=== PATIENT | female | born 1950 | race African-American/Black ===

== ENCOUNTER 2017-02-02 08:33 | Emergency (ER) | payer MEDICARE, BC ==
[2017-02-02] MEDS ORDERED: Gabapentin CAP(*) 300 MG PO ONE (09:27)
[2017-02-02] MEDS ORDERED: Ibuprofen TAB* 800 MG PO ONE (09:27)
[2017-02-02] MEDS ORDERED: ValACYclovir (*) 1 GM TAB PO ONE (09:27)
--- NOTE | 2017-02-03 23:56 | ED ---
Skin Complaint - HPI Summary HPI Summary: Pt here w/ painful rash on Lt cheek this morning. Started as pain and swelling last night - couldn't sleep d/t pain. H/o chix pox. No other areas of pain or rash to report. Eye is moving well and painfree - vision intact. Ear is also pain free and hearing well. - History of Current Complaint Chief Complaint: EDRashSkinAbscess Time Seen by Provider: 02/02/17 09:01 Stated Complaint: RASH Pain Intensity: 0 Pain Scale Used: 0-10 Numeric - Allergy/Home Medications Allergies/Adverse Reactions: Allergies Allergy/AdvReac Type Severity Reaction Status Date / Time Sulfa Antibiotics Allergy Severe Rash And Verified 02/02/17 08:44 Itching PMH/Surg Hx/FS Hx/Imm Hx Infectious Disease History: No Infectious Disease History: Denies: Traveled Outside the [place] in Last 30 Days - Social History Alcohol Use: Occasionally Substance Use Type: Reports: None Smoking Status (MU): Never Smoked Tobacco Physical Exam Vital Signs On Initial Exam: Initial Vitals Temp Pulse Resp BP Pulse Ox 97.0 F 64 16 190/86 98 02/02/17 08:34 02/02/17 08:34 02/02/17 08:34 02/02/17 08:34 02/02/17 08:34 - [place] Coma Scale Coma Scale Total: 15 Diagnostics - Vital Signs Vital Signs Temp Pulse Resp BP Pulse Ox 02/02/17 08:34 97.0 F 64 16 190/86 98 - Laboratory Lab Statement: Any lab studies that have been ordered have been reviewed, and results considered in the medical decision making process. Course/Dx - Diagnoses Provider Diagnoses: Shingles Discharge - Discharge Plan Condition: Stable Disposition: HOME Prescriptions: Gabapentin CAP(*) [Neurontin 300 CAP(*)] 300 mg PO TID #42 cap Ibuprofen TAB* [Motrin TAB* 800 MG] 800 mg PO Q8HR PRN #20 tab PRN Reason: Pain ValACYclovir (*) [Valtrex 1 GM(*)] 1 gm PO TID #21 tab Patient Education Materials: Shingles (ED) Referrals: Non Staff,Doctor [Primary Care Provider] - Additional Instructions: Take medications as directed Follow-up with PCP/[facility] in 1 week: [address], [place] [address] *If worse or if you develop any eye pain/irritation/change in vision in Left eye , return to ED
[2017-02-04 19:11] LABS: HS/VZ Source LEFT CHEEK; Varicella Zoster Result Negative (Negative); Varicella Zoster Source LEFT CHEEK
== END 2017-02-02 10:14 | disposition home or self-care (01) ==
LOC: ED 08:33
DX: B02.9 Zoster without complications (principal); R21 Rash and other nonspecific skin eruption
CPT/HCPCS: 87529; 87798; 99281; A9270-GY

== ENCOUNTER 2017-02-08 15:00 | Emergency (ER) | payer MEDICARE, BC ==
[2017-02-08] MEDS ORDERED: Cephalexin CAP* 500 MG PO ONE (16:20)
[2017-02-08 17:03] VITALS: BP 147/72
--- NOTE | 2017-02-09 07:34 | ED ---
Praveen Crowder Gabriel, scribed for Juanpablo Sigala MD on 02/08/17 at 1606 . Skin Complaint - HPI Summary HPI Summary: This patient is a 66 year old F presenting to [facility] accompanied by family with a chief complaint of pain and redness on arm since a few days prior. Patient was diagnosed with shingles a week ago and believes it is due to her shingles. - History of Current Complaint Chief Complaint: EDGeneral Time Seen by Provider: 02/08/17 16:02 Stated Complaint: SHINGLES FLOW UP Hx Obtained From: Patient Onset/Duration: Still Present Timing: Constant Pain Intensity: 0 Pain Scale Used: 0-10 Numeric Skin Location: Arm Character: Redness Associated Signs & Symptoms: Tenderness - Allergy/Home Medications Allergies/Adverse Reactions: Allergies Allergy/AdvReac Type Severity Reaction Status Date / Time Sulfa Antibiotics Allergy Severe Rash And Verified 02/02/17 08:44 Itching PMH/Surg Hx/FS Hx/Imm Hx Previously Healthy: No Opthamlomology History: Denies: Hx Legally Blind - Immunization History Immunizations Up to Date: Yes Infectious Disease History: No Infectious Disease History: Reports: Hx Shingles Denies: Traveled Outside the [place] in Last 30 Days - Family History Known Family History: Negative: Diabetes - Social History Alcohol Use: Rare Alcohol Amount: holidays or reunions Substance Use Type: Reports: None Smoking Status (MU): Never Smoked Tobacco Review of Systems Negative: Fever Positive: Other - pain and redness on left arm All Other Systems Reviewed And Are Negative: Yes Physical Exam - Summary Physical Exam Summary: VITAL SIGNS: Reviewed. GENERAL: ~Patient is a well-developed and nourished female who is lying comfortable in the stretcher. ~Patient is not in any acute respiratory distress. HEAD AND FACE: No signs of trauma. ~No ecchymosis, hematomas or skull depressions. No sinus tenderness. EYES: PERRLA, EOMI x 2, No injected conjunctiva, no nystagmus. EARS: Hearing grossly intact. Ear canals and tympanic membranes are within normal limits. MOUTH: Oropharynx within normal limits. NECK: Supple, trachea is midline, no adenopathy, no JVD, no carotid bruit, no c- spine tenderness, neck with full ROM. CHEST: Symmetric, no tenderness at palpation LUNGS: Clear to auscultation bilaterally. No wheezing or crackles. CVS: Regular rate and rhythm, S1 and S2 present, no murmurs or gallops appreciated. ABDOMEN: Soft, non-tender. No signs of distention. No rebound no guarding, and no masses palpated. Bowel sounds are normal. EXTREMITIES: FROM in all major joints, no edema, no cyanosis or clubbing. There is induration in her left arm along with erythema and tenderness. NEURO: Alert and oriented x 3. No acute neurological deficits. Speech is normal and follows commands. SKIN: Dry and warm Triage Information Reviewed: Yes Vital Signs On Initial Exam: Initial Vitals Temp Pulse Resp BP Pulse Ox 97.6 F 61 17 140/68 96 02/08/17 15:11 02/08/17 15:11 02/08/17 15:11 02/08/17 15:11 02/08/17 15:11 Vital Signs Reviewed: Yes - [place] Coma Scale Coma Scale Total: 15 Diagnostics - Vital Signs Vital Signs Temp Pulse Resp BP Pulse Ox 02/08/17 15:11 97.6 F 61 17 140/68 96 - Laboratory Lab Statement: Any lab studies that have been ordered have been reviewed, and results considered in the medical decision making process. Course/Dx - Course Assessment/Plan: Patient with a resolve facial shingles. Now with cellulitis in the right arm. Patient was given keflex and will discharged home with F/U of PMD. I discussed all the findings and test results with the patient. Patient was instructed to return to the emergency room immediately if any of the symptoms return or worsens. Plan of care was discussed with the patient and understands and agrees. All questions were answered at patient satisfaction. There were no further complaints or concerns. Lung exam before discharge: CTA B /L. Good air exchange. No wheezing or crackles heard. CVS: S1 and S2 present. No murmurs appreciated. Patient is alert and oriented x 3. Patient is hemodynamically stable. Patient will be discharged home with follow up PCP in the next 2-3 days - Differential Diagnoses - Skin Complaint Differential Diagnoses: Abscess, Cellulitis, Drug Rash, Eczema - Diagnoses Provider Diagnoses: Cellulitis Discharge - Discharge Plan Condition: Stable Disposition: HOME Prescriptions: Cephalexin CAP* [Keflex CAP*] 500 mg PO QID #40 cap Patient Education Materials: Cephalexin (By mouth), Cellulitis (ED) Referrals: Non Staff,Doctor [Primary Care Provider] - Additional Instructions: Return to emergency department for new or worsening symptoms. The documentation as recorded by the Praveen martinez Gabriel accurately reflects the service I personally performed and the decisions made by , Juanpablo Sigala MD.
== END 2017-02-08 17:03 | disposition home or self-care (01) ==
LOC: ED 15:00
DX: L03.113 Cellulitis of right upper limb (principal)
CPT/HCPCS: 99282; A9270-GY